=== PATIENT | female | born 1995 | race Caucasian/White ===

== ENCOUNTER 2017-04-11 20:20 | Emergency (ER) | payer MEDICAID ==
[2016-06-05 09:41] VITALS: BMI 27.6
[~2017-04-11 20:20] MED LIST: FERROUS SULFAT325 MG PO; MOTRIN600 MG PO; PERCOCET 5-3251 TAB PO
[2017-04-11 21:38] LABS: BASOPHILS 0.2 % (0-2); EOSINOPHILS 1.4 % (0-7); HEMATOCRIT 35.7 % (36.0-48.0); HEMOGLOBIN 11.4 g/dL (12-16); IMMATURE GRANULOCYTES 0.1 % (0-5); MCH 25.3 pg (26.0-34.0); MCHC 31.9 g/dL (31.0-37.0); MCV 79.2 fL (80.0-100.0); MEAN PLATELET VOLUME 11.3 fL (7.4-10.4); MONOCYTES 7.7 % (2-11); NEUTROPHILS 58.6 % (40-80); PLATELET COUNT 220 10x3/uL (130-400); RBC 4.51 10x6/uL (4.00-5.40); RDW 14.5 % (11.5-14.5); WBC 8.7 10x3/uL (4.8-10.8)
[2017-04-11 21:42] LABS: HCG SERUM POSITIVE (NEGATIVE)
[2017-04-13] MEDS ORDERED: IBUPROFEN800 MG PO (19:54)
== END 2017-04-12 00:03 | disposition home or self-care (01) ==
LOC: D.ER 20:20
PROVIDERS: Emergency Medicine; Physician Assistant Medical
DX: O20.0 Threatened abortion (principal); N93.9 Abnormal uterine and vaginal bleeding, unspecified

== ENCOUNTER 2017-04-13 07:16 | Day surgery (SDC) | payer MEDICAID ==
[2017-04-13 07:43] LABS: BASOPHILS 0.2 % (0-2); EOSINOPHILS 0.8 % (0-7); HEMATOCRIT 36.1 % (36.0-48.0); HEMOGLOBIN 11.6 g/dL (12-16); IMMATURE GRANULOCYTES 0.2 % (0-5); LYMPHOCYTES 24.1 % (15-50); MCH 25.4 pg (26.0-34.0); MCHC 32.1 g/dL (31.0-37.0); MEAN PLATELET VOLUME 11.1 fL (7.4-10.4); MONOCYTES 6.6 % (2-11); NEUTROPHILS 68.1 % (40-80); PLATELET COUNT 192 10x3/uL (130-400); RBC 4.57 10x6/uL (4.00-5.40); RDW 14.7 % (11.5-14.5); WBC 8.5 10x3/uL (4.8-10.8)
[2017-04-13 08:48] LABS: ALBUMIN 3.9 g/dL (3.4-5.0); ALKALINE PHOSPHATASE 54 U/L (46-116); ALT (SGPT) 20 U/L (10-68); BILIRUBIN - TOTAL 0.34 mg/dL (0.2-1.3); CALC OSMOLALITY 278 mosm/kg (275-300); CALCIUM 9.2 mg/dL (8.5-10.1); CARBON DIOXIDE 23.1 mmol/L (21.0-32.0); CHLORIDE - SERUM 105 mmol/L (98-107); CREATININE - SERUM 0.7 mg/dL (0.6-1.3); GLUCOSE 100 mg/dL (74-106); POTASSIUM - SERUM 3.7 mmol/L (3.5-5.1); PROTEIN - SERUM 7.6 g/dL (6.4-8.2); SODIUM 140 mmol/L (136-145); UREA NITROGEN 12 mg/dL (7-18); eGFR NON AFRICAN AMERICAN > 90 mL/min (90-120)
[2017-04-13 09:17] LABS: APPEARANCE HAZY (CLEAR); BILIRUBIN NEGATIVE (NEGATIVE); COLOR PINK (YELLOW); GLUCOSE NEGATIVE (NEGATIVE); KETONE NEGATIVE (NEGATIVE); NITRITE NEGATIVE (NEGATIVE); PROTEIN TRACE mg/dL (NEGATIVE); UROBILINOGEN NORMAL (NORMAL)
[2017-04-13 09:19] LABS: BACTERIA NONE SEEN /hpf (NONE SEEN); EPITHELIAL CELLS 0-5 /hpf (0-5); WHITE CELLS - URINE 0-5 /hpf (0-5)
[2017-04-13 13:34] VITALS: BMI 23.2
[2017-04-13 13:43] VITALS: BP 155/84
[2017-04-13 17:19] VITALS: BP 106/49; BP 160/89
[2017-04-13] MEDS ORDERED: IBUPROFEN800 MG PO (19:54)
--- NOTE | 2017-04-14 18:58 | OP ---
PATIENT NAME: NOLAN GUILLAUME MEDICAL RECORD: [id number] LOCATION:[id number] ADMISSION DATE:04/13/17 SURGEON: AMOR MONROE MD DATE OF OPERATION: 04/13/2017 PREOPERATIVE DIAGNOSIS: Inevitable . POSTOPERATIVE DIAGNOSIS: Inevitable . PROCEDURES: Evacuation and curettage of uterus. SURGEON: Amor Monroe MD ANESTHESIOLOGIST: Dr. Valentino ANESTHETIC: General. FINDINGS: Cervical os is dilated, products of conception noted at the os. Tissue removed with ring forceps. At the time of suction curettage, a scant to moderate amount of tissue removed. Good cry throughout. ESTIMATED BLOOD LOSS: Less than or equal 100 cc. FLUIDS: 400 cc of lactated Ringer's. URINE OUTPUT: Quantity sufficient void prior to this procedure. COMPLICATIONS: None. DRAINS: None. INDICATIONS: The patient is a 22-year-old female, who has been seen twice in our Emergency Room, who now presents this morning with complaints of heavy bleeding and cramping. The patient was offered misoprostol termination and declined. She was sent to the floor and placed on observation until procedure could be performed. DESCRIPTION OF PROCEDURE: After informed consent was assured, the patient was taken to the operating room where anesthetic was obtained without difficulty. The patient is now prepped and draped in the usual sterile fashion. Speculum was introduced in the vagina with the above findings. The products of conception at the os were removed with Robert stone forceps. Curettage was now performed. After suction curettage performed, sharp curettage was performed with good cry throughout. A single pass with the suction device removed all remaining clot and debris. Sponge, lap and needle counts correct times 2. The patient is taken down from the stirrups and it will be sent to the recovery room and she is currently in stable condition. TRANSINT:[id number] Voice Confirmation ID: [id number] DOCUMENT ID: [id number] OPERATIVE REPORT [id number] NOLAN GUILLAUME AMOR MONROE MD at [id number] CC: [id number] DICTATION DATE: 04/13/171814 DIRECT CARE SPECIALIST: 04/13/17 [id number] DIS IN 04/13/17 [facility] [address] [place] [address]
== END 2017-04-13 20:51 | disposition home or self-care (01) ==
LOC: OBSVTIME → D.ER 07:16 → D.OPS 07:16 → OBSVTIME 10:04 → D.ER 10:04 → D.SDCHOLD 10:04 → D.MS 10:30 → D.SDCHOLD 10:30 → EDSTATUS 14:34 → D.MS 20:51 → D.OPS 20:51
PROVIDERS: Family Medicine
DX: O03.4 Incomplete spontaneous abortion without complication (principal); Z79.1 Long term (current) use of non-steroidal anti-inflammatories (NSAID); Z79.891 Long term (current) use of opiate analgesic; Z01.812 Encounter for preprocedural laboratory examination

== ENCOUNTER 2019-07-13 20:37 | Emergency (ER) | payer SELFPAY ==
[~2019-07-13] VITALS: Ht 162.6 cm; Wt 65.9 kg
[~2019-07-13 20:37] MED LIST changes: +IBUPROFEN800 MG PO
[2019-07-13 21:16] VITALS: Ht 162.6 cm; Wt 65.9 kg
[2019-07-13 22:25] LABS: BASOPHILS 0.4 % (0-2); CALC OSMOLALITY 273 mosm/kg (275-300); CALCIUM 8.7 mg/dL (8.5-10.1); CARBON DIOXIDE 26.5 mmol/L (21.0-32.0); CHLORIDE - SERUM 104 mmol/L (98-107); CREATININE - SERUM 0.6 mg/dL (0.6-1.3); EOSINOPHILS 1.3 % (0-7); GLUCOSE 91 mg/dL (74-106); HEMOGLOBIN 10.8 g/dL (12-16); IMMATURE GRANULOCYTES 0.1 % (0-5); LYMPHOCYTES 29.7 % (15-50); MCH 22.5 pg (26.0-34.0); MCV 75.2 fL (80.0-100.0); MEAN PLATELET VOLUME 11.8 fL (7.4-10.4); MONOCYTES 9.8 % (2-11); NEUTROPHILS 58.7 % (40-80); POTASSIUM - SERUM 3.9 mmol/L (3.5-5.1); RBC 4.79 10x6/uL (4.00-5.40); RDW 14.1 % (11.5-14.5); SODIUM 138 mmol/L (136-145); UREA NITROGEN 7 mg/dL (7-18); WBC 8.2 10x3/uL (4.8-10.8); eGFR NON AFRICAN AMERICAN > 90 mL/min (90-120)
[2019-07-13 22:28] LABS: PLATELET COUNT 283 10x3/uL (130-400)
[2019-07-13 22:31] LABS: HCG SERUM NEGATIVE (NEGATIVE)
[2019-07-13 22:32] LABS: ALBUMIN 3.8 g/dL (3.4-5.0); ALKALINE PHOSPHATASE 60 U/L (46-116); ALT (SGPT) 17 U/L (10-68); AMYLASE - SERUM 65 U/L (25-115); BILIRUBIN - TOTAL 0.23 mg/dL (0.2-1.3); LIPASE 102 U/L (73-393); PROTEIN - SERUM 7.4 g/dL (6.4-8.2)
[2019-07-13 22:41] LABS: APPEARANCE CLEAR (CLEAR); BILIRUBIN NEGATIVE (NEGATIVE); COLOR YELLOW (YELLOW); GLUCOSE NEGATIVE (NEGATIVE); KETONE NEGATIVE (NEGATIVE); NITRITE NEGATIVE (NEGATIVE); PROTEIN NEGATIVE (NEGATIVE); UROBILINOGEN NORMAL (NORMAL)
[2019-07-14] MEDS ORDERED: FERROUS GLUCON324 MG PO (00:10)
[2019-07-14 02:04] VITALS: BP 124/85
== END 2019-07-14 02:04 | disposition home or self-care (01) ==
LOC: D.ER 20:37
PROVIDERS: Emergency Medicine
DX: N83.201 Unspecified ovarian cyst, right side (principal); Q51.9 Congenital malformation of uterus and cervix, unspecified; R91.1 Solitary pulmonary nodule; N63.0 Unspecified lump in unspecified breast

== ENCOUNTER → 2019-08-28 11:08 | Outpatient (CLI) | payer MEDICAID ==
[2019-07-13 21:16] VITALS: BMI 24.9
[~2019-08-28 11:08] MED LIST changes: +FERROUS GLUCON324 MG PO
== END | disposition home or self-care (01) ==
LOC: D.US 11:08
PROVIDERS: ATTEND Obstetrics & Gynecology
DX: N63.13 Unspecified lump in the right breast, lower outer quadrant (principal)

== ENCOUNTER → 2019-11-12 09:59 | Outpatient (CLI) | payer OTHER ==
[2019-07-13 21:16] VITALS: BMI 24.9
== END | disposition home or self-care (01) ==
LOC: D.US 09:59
PROVIDERS: ATTEND Surgery
DX: N63.21 Unspecified lump in the left breast, upper outer quadrant (principal)